=== PATIENT | male | born 1990 | race American Indian/Alaskan Native ===

== ENCOUNTER 2021-10-19 13:45 | Emergency (ER) | payer SELFPAY ==
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
[2021-10-19] MEDS ORDERED: HYDROcodone/ACETAMINOPHEN 5-325 MG TAB PO ONE (18:02)
[2021-10-19] MEDS ORDERED: CYCLOBENZAPRINE 10 MG TAB PO ONE (18:02)
[2021-10-19] MEDS ORDERED: IBUPROFEN 800 MG TAB PO ONE (18:02)
[2021-10-19 18:17] VITALS: BP 151/79
== END 2021-10-19 18:16 | disposition home or self-care (01) ==
LOC: ED 13:45
DX: M54.2 Cervicalgia (principal); R42 Dizziness and giddiness; V87.7XXA Person injured in collision between other specified motor vehicles (traffic), initial encounter; Y93.89 Activity, other specified; Y92.488 Other paved roadways as the place of occurrence of the external cause; Y99.8 Other external cause status
CPT/HCPCS: 99282